=== PATIENT | male | born 1960 | race Caucasian/White ===

== ENCOUNTER 2020-07-13 08:47 | Day surgery (SDC) | payer OTHER ==
[2020-07-11 13:12] VITALS: BMI 25.8
[~2020-07-13 08:47] MED LIST: LACTATED RINGERS 1,000 ML IV SCH
[2020-07-13 09:12] VITALS: TEMP 98.2
[2020-07-13] MEDS ORDERED: PROPOFOL 10 MG/ML 20 ML VIAL IV ONE (09:46)
[2020-07-13] MEDS ORDERED: fentaNYL (PF) 50 MCG/ML 2 ML AMP ONE (09:46)
[2020-07-13] MEDS ORDERED: MIDAZOLAM 2 MG/2 ML VIAL ONE (09:46)
[2020-07-13] MEDS ORDERED: LIDOCAINE 1% INJ 10MG/ML (20 ML MDV) ONE (09:46)
--- NOTE | 2020-07-13 10:08 | P.PCN ---
Date of Procedure: 07/13/20 Procedure(s) Performed: Brief history: Patient is a pleasant 60-year-old white male scheduled for an elective upper endoscopy as well as colonoscopy as a part of evaluation of GERD and intermittent lower abdominal pain for the last 1 year duration. Procedure performed: Esophagogastroduodenoscopy with biopsy Colonoscopy with snare polypectomy Preoperative diagnosis: GERD Lower abdominal pain Anesthesia: MAC Procedure: After informed consent was obtained from the patient was brought into the endoscopy unit and IV sedation was administered by anesthesia under continuous monitoring. Initially upper endoscopy was done. The Olympus GF 160 video endoscope was inserted inserted into the mouth and esophagus intubated without any difficulty and was gradually advanced into the stomach and duodenum and carefully examined. The bulb and second part of the duodenum appeared normal. The scope was then withdrawn into the stomach adequately insufflated with air and upon careful examination the antrum and body, cardia and fundus appeared normal. The scope was then withdrawn into the esophagus. The GE junction was located at 40 cm to the incisors. It appeared regular with no erythema erosions or ulcerations. Rest of the esophagus appeared normal. Patient tolerated the procedure well. At this time the patient continued to remain sedation. Initial digital rectal examination was normal. Olympus CF 160 video colonoscope was then inserted into the rectum and gradually advanced to the cecum without any difficulty. Careful examination was performed as the scope was gradually being withdrawn. The prep was excellent. The cecum, ascending colon, transverse colon, descending colon normal. In the distal sigmoid colon there was a 1 cm polyp that was removed by snare polypectomy. In the rectum there was a 5 mm polyp removed by snare polypectomy. Scattered left sided diverticulosis seen. Retroflexion was performed in the rectum and no lesions were noted. Patient tolerated the procedure well. Impression: 1. Upper endoscopy revealed mild antral gastritis 2. Colonoscopy revealed a 1 cm sigmoid polyp and a 5 mm distal rectal polyp status post snare polypectomy Recommendations: Findings of this examination were discussed with the patient as well as his family. He was advised to follow with the biopsy results. and he will continue with Prilosec 20 mg daily and follow antireflux measures. If the biopsy the colon polyps and recent adenoma he can have a repeat colonoscopy in 3 years
[2020-07-13 10:14] VITALS: RESP 16
[2020-07-13 10:27] VITALS: BP 127/86; PULSE 72
== END 2020-07-13 10:45 | disposition home or self-care (01) ==
LOC: ORWHC2ENDO 08:47
PROVIDERS: ATTEND Internal Medicine Gastroenterology
DX: D12.5 Benign neoplasm of sigmoid colon (principal); K31.9 Disease of stomach and duodenum, unspecified; K62.1 Rectal polyp; K29.50 Unspecified chronic gastritis without bleeding; K57.30 Diverticulosis of large intestine without perforation or abscess without bleeding; F17.200 Nicotine dependence, unspecified, uncomplicated
CPT/HCPCS: 88305; 45385; 43239; J2250; J2001; J3010; J2704